=== PATIENT | female | born 1965 | race American Indian/Alaskan Native ===

== ENCOUNTER 2018-02-25 22:24 | Emergency (ER) | payer SELFPAY ==
[2018-02-25 23:07] LABS: Basophils % (Auto) 0.4 % (0.0-1.8); Eosinophils # (Auto) 0.1 K/mm3 (0.0-0.4); Eosinophils % (Auto) 0.7 % (0.0-4.3); Hematocrit 31.5 % (30.3-42.9); Hemoglobin 10.6 gm/dl (10.1-14.3); Lymphocytes # (Auto) 1.4 K/mm3 (1.2-5.4); Mean Corpuscular HGB Conc 34 % (30-34); Mean Corpuscular Hemoglobin 29 pg (28-32); Mean Corpuscular Volume 87 fl (79-97); Monocytes # (Auto) 0.9 K/mm3 (0.0-0.8); Monocytes % (Auto) 8.4 % (0.0-7.3); Platelet Count 171 K/mm3 (140-440); Red Blood Count 3.62 M/mm3 (3.65-5.03); Red Cell Distribution Width 13.8 % (13.2-15.2)
[2018-02-25 23:26] LABS: Alanine Aminotransferase 11 units/L (7-56); Albumin 3.6 g/dL (3.9-5); BUN/Creatinine Ratio 38; Blood Urea Nitrogen 19 mg/dL (7-17); Calcium 7.8 mg/dL (8.4-10.2); Hemolysis Index 4
[2018-02-25] MEDS ORDERED: NACL 0.9% 1000 ML 1,000 ML IV ONE (23:51)
[2018-02-25] MEDS ORDERED: ZOFRAN IV ONE (23:52)
[2018-02-25] MEDS ORDERED: STADOL IV PRN (23:52)
--- NOTE | 2018-02-25 23:57 | Emergency Department Report ---
ED N/V/D HPI - General Chief complaint: Nausea/Vomiting/Diarrhea Stated complaint: GENERAL SICKNESS Time Seen by Provider: 02/25/18 23:44 Source: EMS Mode of arrival: Stretcher Limitations: No Limitations - History of Present Illness Initial comments: 52-year-old woman with rapid onset of frequent bouts of nausea vomiting and diarrhea approximately 8 hours prior to arrival, and approximately 4-5 hours after eating a suspect sandwich earlier this morning, which she reported did not smell quite right. She's had about 5-6 episodes of emesis, and this is typically instigated by any attempts at oral intake, whether fluid or solid foods, she's had approximately 6-8 copious watery diarrheal stools, but without blood or melena. She is concerned she has food poisoning, but her history recently is significant for diagnosis with kidney stone the previous day during an emergency department visit at [facility], where she was treated, and discharged home, with daily dose of tamsulosin. Discomfort from kidney stone is quite different from current symptoms, having been primarily symptomatic from discomfort in the back, without any diarrhea, and much less nausea. She's not had a fever chills or diaphoresis, has had no other direct urinary symptoms into time. Past medical history significant also for arthritis, as well as prior C-sections. Patient was treated with intravenous fluids prior to my examination, but has not had any medication, still reports significant nausea, inability to keep any fluids down, discomfort is [id number]-hn-[id number], rated 6-8 out of 10, it is crampy and aching, and localized predominantly to the lower abdomen generally, without any radiation. Discomfort is worse with need to have a bowel movement, typically loose and watery, diarrheal, without blood, and intermittently cramps spontaneously in a waxing and waning fashion. - Related Data Previous Rx's Medication Instructions Recorded Last Taken Type Dicyclomine [Bentyl] 10 mg PO QID PRN #12 capsule 02/26/18 Unknown Rx HYDROcodone/ACETAMINOPHEN [[place] 1 each PO Q4-6H PRN #12 tablet 02/26/18 Unknown Rx 5-325 Tablet] Loperamide [Imodium A-D] 2 mg PO Q2HR PRN #12 udc 02/26/18 Unknown Rx Ondansetron [Zofran ODT TAB] 8 mg PO Q8HR PRN #10 tab.rapdis 02/26/18 Unknown Rx Allergies Allergy/AdvReac Type Severity Reaction Status Date / Time No Known Allergies Allergy Unverified 02/25/18 22:33 ED Review of Systems ROS: Stated complaint: GENERAL SICKNESS Other details as noted in HPI Comment: All other systems reviewed and negative Constitutional: denies: chills, fever ENT: denies: throat pain Respiratory: denies: cough, shortness of breath Cardiovascular: denies: chest pain, syncope Endocrine: no symptoms reported Gastrointestinal: abdominal pain, nausea, vomiting, diarrhea Genitourinary: other. denies: urgency, dysuria, hematuria Musculoskeletal: back pain, arthralgia (from recently diagnosed kidney stones() Skin: denies: rash, lesions Neurological: denies: headache, weakness, paresthesias Psychiatric: denies: anxiety, depression Hematological/Lymphatic: denies: easy bleeding, easy bruising ED Past Medical Hx - Past Medical History Previous Medical History?: Yes Hx Arthritis: Yes Hx Kidney Stones: Yes - Surgical History Past Surgical History?: Yes Additional Surgical History: - Social History Smoking Status: Current Every Day Smoker Substance Use Type: Prescribed - Medications Home Medications: Home Medications Medication Instructions Recorded Confirmed Last Taken Type Dicyclomine [Bentyl] 10 mg PO QID PRN #12 capsule 02/26/18 Unknown Rx HYDROcodone/ACETAMINOPHEN [[place] 1 each PO Q4-6H PRN #12 tablet 02/26/18 Unknown Rx 5-325 Tablet] Loperamide [Imodium A-D] 2 mg PO Q2HR PRN #12 udc 02/26/18 Unknown Rx Ondansetron [Zofran ODT TAB] 8 mg PO Q8HR PRN #10 tab.rapdis 02/26/18 Unknown Rx ED Physical Exam - General Limitations: No Limitations General appearance: in distress (nacl-iw-axmbvzqh discomfort, resting quietly on stretcher, apparently sleeping at time of examination) - Head Head exam: Present: atraumatic, normocephalic - Eye Eye exam: Present: PERRL, EOMI - ENT ENT exam: Present: normal exam - Neck Neck exam: Present: normal inspection, full ROM. Absent: tenderness - Respiratory Respiratory exam: Present: normal lung sounds bilaterally. Absent: respiratory distress, chest wall tenderness - Cardiovascular Cardiovascular Exam: Present: regular rate, normal heart sounds - GI/Abdominal GI/Abdominal exam: Present: soft, tenderness (bahj-zy-ybqeeygl, lower abdomen, nonlocalized), hyperactive bowel sounds (mildly brisk, no borborygmi, no obstructive nature). Absent: guarding, rebound - Rectal Rectal exam: Present: deferred - Extremities Exam Extremities exam: Present: normal inspection - Back Exam Back exam: Present: tenderness (mild bilateral lumbosacral tenderness and soft tissue, no direct bony tenderness) - Neurological Exam Neurological exam: Present: alert, oriented X3 - Psychiatric Psychiatric exam: Present: normal affect, normal mood - Skin Skin exam: Present: warm, dry, intact, normal color. Absent: rash ED Course Vital Signs 02/25/18 02/25/18 02/25/18 22:27 22:31 22:40 Temperature 36.7 C Pulse Rate 92 H Respiratory 18 Rate Blood Pressure 102/72 112/64 O2 Sat by Pulse 98 100 99 Oximetry 02/25/18 02/25/18 02/25/18 22:50 23:00 23:10 Temperature Pulse Rate Respiratory Rate Blood Pressure 100/62 105/66 105/66 O2 Sat by Pulse 99 98 Oximetry 02/25/18 02/25/18 02/25/18 23:20 23:30 23:40 Temperature Pulse Rate Respiratory Rate Blood Pressure 100/62 99/62 99/62 O2 Sat by Pulse 98 100 99 Oximetry 02/25/18 02/26/18 23:50 00:00 Temperature Pulse Rate Respiratory Rate Blood Pressure 102/65 110/71 O2 Sat by Pulse 98 98 Oximetry - Reevaluation(s) Reevaluation #1: 02/26/18 00:21 Stable, improved after treated medically, although patient urinated on her own, reporting that she had to go, could not wait, refused to wait to collect urine specimen. ED Medical Decision Making - Lab Data Result diagrams: 02/25/18 22:53 02/25/18 22:53 - Medical Decision Making Findings of typical acute gastroenteritis, likely spoiled food as proximate cause, with generally benign abdomen, with dehydration, physically and clinically stable, will be treated symptomatically with antiemetics, antispasmodics, and analgesics. Clear fluid recommended, rest, and work release provided. Recheck by physician in 2-3 days Critical Care Time: No Critical care attestation.: If time is entered above; I have spent that time in minutes in the direct care of this critically ill patient, excluding procedure time. ED Disposition Clinical Impression: Acute gastroenteritis, Dehydration, moderate Disposition: DC-01 TO HOME OR SELFCARE Is pt being admited?: No Does the pt Need Aspirin: No Condition: Stable Instructions: Dehydration (ED), Food Poisoning (ED) Prescriptions: Dicyclomine [Bentyl] 10 mg PO QID PRN #12 capsule PRN Reason: cramping HYDROcodone/ACETAMINOPHEN [[place] 5-325 Tablet] 1 each PO Q4-6H PRN #12 tablet PRN Reason: Pain, Moderate (4-6) Loperamide [Imodium A-D] 2 mg PO Q2HR PRN #12 udc PRN Reason: Diarrhea Ondansetron [Zofran ODT TAB] 8 mg PO Q8HR PRN #10 tab.rapdis PRN Reason: Nausea Referrals: PRIMARY CARE, [Primary Care Provider] - 3-5 Days Forms: Work/School Release Form(ED) Time of Disposition: 00:27
[2018-02-26] MEDS ORDERED: MORPHINE IV ONE ×2 (00:17→00:18)
[2018-02-26] MEDS ORDERED: BENADRYL IV ONE (00:33)
[2018-02-26] MEDS ORDERED: IMODIUM PO ONE (00:34)
[2018-02-26 01:32] VITALS: BP 128/79
== END 2018-02-26 01:32 | disposition home or self-care (01) ==
LOC: ED 22:24
DX: K52.9 Noninfective gastroenteritis and colitis, unspecified (principal); E86.0 Dehydration; M19.90 Unspecified osteoarthritis, unspecified site; F17.200 Nicotine dependence, unspecified, uncomplicated; Z87.442 Personal history of urinary calculi
CPT/HCPCS: 36415; 80053; 85025; 96361; 96374; 96375; 99284; J1200; J2270; J2405; J7030

== ENCOUNTER 2019-04-21 12:55 | Emergency (ER) | payer SELFPAY ==
[2019-04-21 13:16] VITALS: BP 114/75
[2019-04-21 13:29] LABS: Basophils % (Auto) 0.7 % (0.0-1.8); Eosinophils # (Auto) 0.1 K/mm3 (0.0-0.4); Eosinophils % (Auto) 1.2 % (0.0-4.3); Hematocrit 36.1 % (30.3-42.9); Hemoglobin 12.1 gm/dl (10.1-14.3); Lymphocytes # (Auto) 2.3 K/mm3 (1.2-5.4); Lymphocytes % (Auto) 39.2 % (13.4-35.0); Mean Corpuscular HGB Conc 33 % (30-34); Mean Corpuscular Volume 86 fl (79-97); Monocytes # (Auto) 0.5 K/mm3 (0.0-0.8); Monocytes % (Auto) 8.2 % (0.0-7.3); Platelet Count 226 K/mm3 (140-440); Red Cell Distribution Width 15.1 % (13.2-15.2)
--- NOTE | 2019-04-21 13:39 | XRay Report ---
CHEST 2 VIEWS INDICATION / CLINICAL INFORMATION: Chest Pain. COMPARISON: None available. FINDINGS: SUPPORT DEVICES: None. HEART / MEDIASTINUM: No significant abnormality. LUNGS / PLEURA: No significant pulmonary or pleural abnormality. No pneumothorax. Small calcified gra nuloma is present in the left midlung. ADDITIONAL FINDINGS: No significant additional findings. IMPRESSION: 1. No acute findings. Signer Name: Akanksha France MD Signed: 04/21/2019 1:34 PM Workstation Name: [id number]
[2019-04-21 13:42] LABS: INR 1.01 (0.87-1.13); Partial Thromboplastin Time 27.4 Sec. (24.2-36.6)
[2019-04-21 13:54] LABS: Alanine Aminotransferase 27 units/L (7-56); Albumin 4.4 g/dL (3.9-5); BUN/Creatinine Ratio 12; Blood Urea Nitrogen 7 mg/dL (7-17); Calcium 9.4 mg/dL (8.4-10.2); Hemolysis Index 7
--- NOTE | 2019-04-21 14:22 | Emergency Department Report ---
ED Chest Pain HPI - General Chief Complaint: Chest Pain Stated Complaint: CHEST PAIN Time Seen by Provider: 04/21/19 13:13 Source: patient Mode of arrival: Ambulatory Limitations: No Limitations - History of Present Illness MD Complaint: chest pain -: Gradual, days(s) (1) Onset: during rest Pain Location: substernal Pain Radiation: none, LUE Severity scale (0 -10): 1 Quality: aching Consistency: intermittent Improves With: nothing Worsens With: nothing re: denies: nausea, vomting, diaphoresis, dyspnea, sense of impending doom Other Symptoms: other (Denies fam hx sudden cardiac ). denies: cough, fever, syncope, rash, acid taste in mouth, leg swelling, palpitations, burping - Related Data Previous Rx's Medication Instructions Recorded Last Taken Type Dicyclomine [Bentyl] 10 mg PO QID PRN #12 capsule 02/26/18 Unknown Rx HYDROcodone/ACETAMINOPHEN [[place] 1 each PO Q4-6H PRN #12 tablet 02/26/18 Unknown Rx 5-325 Tablet] Loperamide [Imodium A-D] 2 mg PO Q2HR PRN #12 udc 02/26/18 Unknown Rx Ondansetron [Zofran ODT TAB] 8 mg PO Q8HR PRN #10 tab.rapdis 02/26/18 Unknown Rx Allergies Allergy/AdvReac Type Severity Reaction Status Date / Time No Known Allergies Allergy Unverified 02/25/18 22:33 Heart Score - HEART Score History: Slightly suspicious EKG: Normal Age: 45-65 Risk factors: No known risk factors Troponin: < normal limit HEART Score: 1 ED Review of Systems ROS: Stated complaint: CHEST PAIN Other details as noted in HPI Other: GENERAL: No weight change, fatigue, fever, chills, or night sweats SKIN: No changes in skin or hair, no itching, no rashes, no jaundice HEAD: No trauma, headache, or visual changes EYES: No blurriness, tearing, itching, acute visual loss, conjunctival discoloration, or scleral icterus EARS: No hearing loss, tinnitus, vertigo, or earache NOSE: No rhinorrhea, stuffiness, sneezing, itching, or epistaxis MOUTH: No bleeding gums, hoarseness, sore throat, or swelling CARDIAC: Chest pain. No new murmur, palpitations, dyspnea on exertion, orthopnea, PND, or edema RESPIRATORY: No shortness of breath, wheeze, cough, sputum production, hemoptysis, pneumonia, asthma, bronchitis, or emphysema GI: No change in appetite, nausea, vomiting, dysphagia, diarrhea, constipation, hematemesis, melena, hematochezia, or abdominal pain URINARY: No frequency, urgency, polyuria, dysuria, hematuria, or incontinence MUSCULOSKELETAL: No muscle weakness, joint stiffness, decrease in range of motion, redness, swelling NEUROLOGIC: No headache, loss of sensation, numbness, tingling, tremors, weakness, paralysis, seizures HEMATOLOGIC: No anemia, easy bruising, bleeding, petechiae, or purpura ENDOCRINE: No hot or cold intolerance, sweating, polyuria, polydipsia or, polyphagia no thyroid problems PSYCHIATRIC: No change in mood, no anxiety, no depression ED Past Medical Hx - Past Medical History Previous Medical History?: Yes Hx Arthritis: Yes Hx Kidney Stones: Yes - Surgical History Past Surgical History?: Yes Additional Surgical History: - Social History Smoking Status: Current Every Day Smoker Substance Use Type: None - Medications Home Medications: Home Medications Medication Instructions Recorded Confirmed Last Taken Type Dicyclomine [Bentyl] 10 mg PO QID PRN #12 capsule 02/26/18 Unknown Rx HYDROcodone/ACETAMINOPHEN [[place] 1 each PO Q4-6H PRN #12 tablet 02/26/18 Unknown Rx 5-325 Tablet] Loperamide [Imodium A-D] 2 mg PO Q2HR PRN #12 udc 02/26/18 Unknown Rx Ondansetron [Zofran ODT TAB] 8 mg PO Q8HR PRN #10 tab.rapdis 02/26/18 Unknown Rx ED Physical Exam - General Limitations: No Limitations - Other Other exam information: GENERAL: Patient in no acute distress HEAD: Normocephalic, atraumatic EYES: PERRLA, EOM intact, no scleral icterus, no conjunctival hemorrhage, visual kumari and acuity wnl NOSE: No tenderness, discharge, sinus tenderness MOUTH: No erythema, bleeding, exudate HEART: Regular rate and rhythm, no murmur, S1-S2 are auscultated, pulses are symmetric LUNGS: Bilateral breath sounds, No tachypnea, No retractions, No wheezing, rales, rhonchi ABDOMEN: Normal bowel sounds, abdomen soft, no tenderness, no rebound, no gu arding, no distention, no masses, no CVA tenderness MUSCULOSKELETAL: Normal joint range of motion, no redness, no swelling, no tenderness NEUROLOGIC: GCS 15, Alert and Oriented x3, Cranial nerves intact, normal sensation, normal strength, no cerebellar deficit, NIHSS 0 PSYCHIATRIC: Patient rude and hostile during interview saying she is irritated to keep asking questions with ER staff and it should be able to be read in the computer the first time. No homicidal or suicidal ideation, no anxiety, no depression, no hallucinations SKIN: Skin is warm and dry, no wounds, no rashes ED Course Vital Signs 04/21/19 13:13 Temperature 98.3 F Pulse Rate 80 Respiratory 20 Rate Blood Pressure 114/75 O2 Sat by Pulse 100 Oximetry ED Medical Decision Making - Lab Data Result diagrams: 04/21/19 13:21 04/21/19 13:21 Laboratory Results - last 24 hr 04/21/19 04/21/19 04/21/19 13:21 13:21 13:21 WBC 5.9 RBC 4.20 Hgb 12.1 Hct 36.1 MCV 86 MCH 29 MCHC 33 RDW 15.1 Plt Count 226 Lymph % (Auto) 39.2 H [place] % (Auto) 8.2 H Eos % (Auto) 1.2 Baso % (Auto) 0.7 Lymph # 2.3 [place] # 0.5 Eos # 0.1 Baso # 0.0 Seg Neutrophils % 50.7 Seg Neutrophils # 3.0 PT 13.0 INR 1.01 APTT 27.4 Sodium 143 Potassium 4.0 Chloride 103.2 Carbon Dioxide 29 Anion Gap 15 BUN 7 Creatinine 0.6 L Estimated GFR > 60 BUN/Creatinine Ratio 12 Glucose 71 Calcium 9.4 Total Bilirubin 0.30 AST 19 ALT 27 Alkaline Phosphatase 70 Troponin T < 0.010 Total Protein 7.1 Albumin 4.4 Albumin/Globulin Ratio 1.6 - EKG Data When compared to previous EKG there are: no significant change - Radiology Data Radiology results: report reviewed - Medical Decision Making Patient comfortable. Updated with results. Plan continue lab evaluation. Patient refusing further testing in the ER with staff. Risks/benefits/alternatives discussed including . Patient expresses un derstanding. Plan discharge against medical advice. Return if any worsening. Critical care attestation.: If time is entered above; I have spent that time in minutes in the direct care of this critically ill patient, excluding procedure time. ED Disposition Clinical Impression: Left against medical advice, Drug-seeking behavior Chest pain Qualifiers: Chest pain type: unspecified Qualified Code(s): R07.9 - Chest pain, unspecified Disposition: LEFT AGAINST MED ADVICE Is pt being admited?: No Condition: Stable Instructions: Chest Pain (ED) Referrals: PRIMARY CAREMD [Primary Care Provider] - 2-3 Days TYESHA NANCE MD [Staff Physician] - 2-3 Days [facility] [Outside] - 2-3 Days Time of Disposition: 14:25
== END 2019-04-21 14:49 | disposition left against medical advice (07) ==
LOC: ED 12:55
DX: R07.9 Chest pain, unspecified (principal); Z76.5 Malingerer [conscious simulation]; M19.90 Unspecified osteoarthritis, unspecified site; F17.200 Nicotine dependence, unspecified, uncomplicated
CPT/HCPCS: 36415; 71046; 80053; 84484; 85025; 85610; 85730; 93005; 93010

== ENCOUNTER 2019-05-26 03:28 | Emergency (ER) | payer SELFPAY ==
[2019-05-26 03:33] VITALS: BP 105/75
--- NOTE | 2019-05-26 05:09 | Emergency Department Report ---
Chief Complaint: Skin Rash Stated Complaint: BODY RASH Time Seen by Provider: 05/26/19 04:43 - HPI History of Present Illness: 53-year-old -[place] female comes in with generalized body rash 3 weeks has been off and on. Patient reports she's taken Benadryl to help with the itching but REMAINED. Patient denies any new soaps lotions or change of detergents. Patient denies any pets in the home. Patient denies any fever chills. Patient does report that boyfriend has the same bumps. Patient reports that she is followed by [facility]. - ROS Review of Systems: No fever no chills no new detergents lotions or soaps. - Exam Vital Signs: Vital Signs 05/26/19 03:31 Temperature 97.7 F Pulse Rate 74 Respiratory 18 Rate Blood Pressure 105/75 O2 Sat by Pulse 100 Oximetry Physical Exam: A similar and oriented 3. Patient has multiple lesions appears to be insect bites. No cellulitic areas. MSE screening note: Focused history and physical exam performed. Due to findings the following was ordered: Patient be discharged to follow-up with her primary care provider or Dermatology. ED Disposition for MSE Clinical Impression: Bites Disposition: Z-07 MED SCREENING EXAM-LEFT Is pt being admited?: No Does the pt Need Aspirin: No Condition: Stable Referrals: [facility] [Outside] - 3-5 Days ELOY WESTFALL MD [Staff Physician] - 3-5 Days
== END 2019-05-26 05:15 | disposition left against medical advice (07) ==
LOC: ED 03:28
DX: T14.8XXA Other injury of unspecified body region, initial encounter (principal); R21 Rash and other nonspecific skin eruption; W57.XXXA Bitten or stung by nonvenomous insect and other nonvenomous arthropods, initial encounter; Y93.89 Activity, other specified; Y92.89 Other specified places as the place of occurrence of the external cause; Y99.8 Other external cause status
CPT/HCPCS: 99282

== ENCOUNTER 2019-06-06 15:47 | Emergency (ER) | payer SELFPAY ==
--- NOTE | 2019-06-06 18:15 | XRay Report ---
CHEST 2 VIEWS INDICATION / CLINICAL INFORMATION: cough and fever. COMPARISON: 04/21/2019 FINDINGS: SUPPORT DEVICES: None. HEART / MEDIASTINUM: No significant abnormality. LUNGS / PLEURA: No significant pulmonary or pleural abnormality. .No pneumothorax. ADDITIONAL FINDINGS: Calcified granulomas noted on the left. IMPRESSION: 1. No acute findings. Signer Name: Heron Reyes MD Signed: 06/06/2019 6:10 PM Workstation Name: [id number]
[2019-06-06] MEDS ORDERED: KETOROLAC 30 MG/1 ML INJ IM ONE (19:49)
[2019-06-06] MEDS ORDERED: dexAMETHasone 20 MG/5 ML VIAL IM ONE (19:49)
[2019-06-06] MEDS ORDERED: AMOXICILLIN/K CLAV 875/125MG TAB PO ONE (19:50)
[2019-06-06] MEDS ORDERED: diphenhydrAMINE 25 MG CAP PO ONE (19:50)
--- NOTE | 2019-06-06 20:21 | Emergency Department Report ---
- General Chief Complaint: Upper Respiratory Infection Stated Complaint: CHILLS/DIZZY/VOMITING/HEADACHE Source: patient Mode of arrival: Ambulatory Limitations: No Limitations - History of Present Illness Initial Comments: Patient is a 53-year-old female with no past medical history who presents to the ED with complaint of acute onset persistent nasal and sinus congestion, sore throat, dry cough, diffuse body aches and pains, fever and chills and severe frontal headache for the last 3 days. Patient states that she has been taking [id number] remedies with no relief. The patient denies dizziness, nausea, vomiting, diarrhea, abdominal pain, chest pain, shortness of breath, change in vision, syncope, neck pain, dysuria, urinary frequency and urgency or vaginal bleeding. MD Complaint: fever, cough, sore throat, rhinorrhea, nasal congestion, sinus pain -: Sudden, days(s) (3) Severity: severe Severity scale (0 -10): 7 Quality: sharp, aching Consistency: constant Improves With: nothing Worsens With: nothing Associated Symptoms: denies other symptoms, fever, chills, myalgias, headache, rhinorrhea, nasal congestion, sore throat, cough. denies: chest pain, shortness of breath, nausea, vomiting, diarrhea, dysuria, rash, right sweats, epistaxis, ear pain, other Treatments Prior to Arrival: none - Related Data Previous Rx's Medication Instructions Recorded Last Taken Type Dicyclomine [Bentyl] 10 mg PO QID PRN #12 capsule 02/26/18 Unknown Rx HYDROcodone/ACETAMINOPHEN [[place] 1 each PO Q4-6H PRN #12 tablet 02/26/18 Unknown Rx 5-325 Tablet] Loperamide [Imodium A-D] 2 mg PO Q2HR PRN #12 udc 02/26/18 Unknown Rx Ondansetron [Zofran ODT TAB] 8 mg PO Q8HR PRN #10 tab.rapdis 02/26/18 Unknown Rx Amoxicillin [Trimox CAP] 500 mg PO Q8H #30 capsule 06/06/19 Unknown Rx Benzonatate [Tessalon Perles] 100 mg PO Q8HR #24 capsule 06/06/19 Unknown Rx Cetirizine HCl [Zyrtec 10mg tab] 10 mg PO DAILY #30 tablet 06/06/19 Unknown Rx Ibuprofen [Motrin] 400 mg PO Q8H PRN #24 06/06/19 Unknown Rx methylPREDNISolone [Medrol 4MG 4 mg PO DAILY #21 tab.ds.pk 06/06/19 Unknown Rx DOSEPAK (21 tabs)] Allergies Allergy/AdvReac Type Severity Reaction Status Date / Time No Known Allergies Allergy Unverified 02/25/18 22:33 ED Review of Systems ROS: Stated complaint: CHILLS/DIZZY/VOMITING/HEADACHE Other details as noted in HPI Comment: All other systems reviewed and negative () Constitutional: chills, fever, malaise Eyes: denies: eye pain, eye discharge, vision change ENT: throat pain, congestion. denies: ear pain Respiratory: cough. denies: shortness of breath, SOB with exertion, SOB at rest, stridor, wheezing Cardiovascular: denies: chest pain, palpitations, dyspnea on exertion, syncope, paroxysmal nocturnal dyspnea Endocrine: no symptoms reported Gastrointestinal: denies: abdominal pain, nausea, diarrhea Genitourinary: denies: urgency, dysuria, discharge Musculoskeletal: back pain, arthralgia, myalgia. denies: joint swelling Skin: denies: rash, lesions Neurological: headache. denies: weakness, paresthesias Psychiatric: denies: anxiety, depression Hematological/Lymphatic: denies: easy bleeding, easy bruising ED Past Medical Hx - Past Medical History Hx Arthritis: Yes Hx Kidney Stones: Yes - Surgical History Additional Surgical History: - Social History Smoking Status: Current Every Day Smoker Substance Use Type: None - Medications Home Medications: Home Medications Medication Instructions Recorded Confirmed Last Taken Type Dicyclomine [Bentyl] 10 mg PO QID PRN #12 capsule 02/26/18 Unknown Rx HYDROcodone/ACETAMINOPHEN [[place] 1 each PO Q4-6H PRN #12 tablet 02/26/18 Unknown Rx 5-325 Tablet] Loperamide [Imodium A-D] 2 mg PO Q2HR PRN #12 udc 02/26/18 Unknown Rx Ondansetron [Zofran ODT TAB] 8 mg PO Q8HR PRN #10 tab.rapdis 02/26/18 Unknown Rx Amoxicillin [Trimox CAP] 500 mg PO Q8H #30 capsule 06/06/19 Unknown Rx Benzonatate [Tessalon Perles] 100 mg PO Q8HR #24 capsule 06/06/19 Unknown Rx Cetirizine HCl [Zyrtec 10mg tab] 10 mg PO DAILY #30 tablet 06/06/19 Unknown Rx Ibuprofen [Motrin] 400 mg PO Q8H PRN #24 06/06/19 Unknown Rx methylPREDNISolone [Medrol 4MG 4 mg PO DAILY #21 tab.ds.pk 06/06/19 Unknown Rx DOSEPAK (21 tabs)] ED Physical Exam - General Limitations: No Limitations General appearance: alert, in no apparent distress - Head Head exam: Present: atraumatic, normocephalic, normal inspection - Eye Eye exam: Present: normal appearance, PERRL, EOMI Pupils: Present: normal accommodation - ENT ENT exam: Present: mucous membranes moist, other (severe frontal sinus pressure and tenderness; grossly congested nasal passages) - Neck Neck exam: Present: normal inspection, full ROM - Respiratory Respiratory exam: Present: normal lung sounds bilaterally. Absent: respiratory distress, wheezes, rales, stridor, chest wall tenderness, accessory muscle use, prolonged expiratory - Cardiovascular Cardiovascular Exam: Present: regular rate, normal rhythm, normal heart sounds. Absent: systolic murmur, diastolic murmur, rubs, gallop - GI/Abdominal GI/Abdominal exam: Present: soft, normal bowel sounds. Absent: tenderness, hyperactive bowel sounds - Extremities Exam Extremities exam: Present: normal inspection, full ROM, normal capillary refill - Back Exam Back exam: Present: normal inspection, full ROM. Absent: CVA tenderness (L), muscle spasm, paraspinal tenderness, vertebral tenderness - Neurological Exam Neurological exam: Present: alert, oriented X3, CN II-XII intact, normal gait, reflexes normal - Psychiatric Psychiatric exam: Present: normal affect, normal mood - Skin Skin exam: Present: warm, dry, intact, normal color. Absent: rash ED Course Vital Signs 06/06/19 06/06/19 06/06/19 16:25 20:03 20:04 Temperature 100.7 F H Pulse Rate 92 H Respiratory 18 16 16 Rate Blood Pressure 116/69 [Left] O2 Sat by Pulse 92 Oximetry - Reevaluation(s) Reevaluation #1: 06/06/19 20:28 This is a 53-year-old female who presented to the ED with diffuse body aches and pains sinus congestion, dry cough, severe frontal headache and fever for 3 days. In the ED, patient is alert and oriented 3 and is not in distress. Patient is febrile with a few 100.7F in triage but in no acute distress. Patient was treated for pain. Chest x-ray shows no acute cardio pulmonary abnormalities or pneumonitis. On reevaluation, patient's symptoms have improved significantly and patient was discharged home on medications and advised to follow-up with her primary care physician in 5-7 days for reevaluation or return to the ED immediately if symptoms get worse. ED Medical Decision Making - Radiology Data Radiology results: report reviewed, image reviewed Chest x-ray shows no acute cardiopulmonary abnormalities or pneumonitis - Medical Decision Making This is a 53-year-old female who presented to the ED with diffuse body aches and pains sinus congestion, dry cough, severe frontal headache and fever for 3 days. In the ED, patient is alert and oriented 3 and is not in distress. Patient is febrile with a few 100.7F in triage but in no acute distress. Patient was treated for pain. Chest x-ray shows no acute cardio pulmonary abnormalities or pneumonitis. On reevaluation, patient's symptoms have improved significantly and patient was discharged home on medications and advised to follow-up with her primary care physician in 5-7 days for reevaluation or return to the ED immediately if symptoms get worse. - Differential Diagnosis Flu like symptoms; sinusitis, bronchitis; pneumonia; strep pharyngitis Critical care attestation.: If time is entered above; I have spent that time in minutes in the direct care of this critically ill patient, excluding procedure time. ED Disposition Clinical Impression: Acute upper respiratory infection, Sinus headache, Fever in adult Acute frontal sinusitis Qualifiers: Recurrence: non-recurrent Qualified Code(s): J01.10 - Acute frontal sinusitis, unspecified Acute bronchitis Qualifiers: Bronchitis organism: unspecified organism Qualified Code(s): J20.9 - Acute bronchitis, unspecified Disposition: DC-01 TO HOME OR SELFCARE Is pt being admited?: No Does the pt Need Aspirin: No Condition: Stable Instructions: Acute Bronchitis (ED), Acute Bacterial Rhinosinusitis (ED), Acute Headache (ED), Fever in Adults (ED) Additional Instructions: Take medication with food, drink plenty of fluids and follow up with your primary care physician in 5-7 days for reevaluation. Return to the ED immediately if symptoms get worse. Prescriptions: methylPREDNISolone [Medrol 4MG DOSEPAK (21 tabs)] 4 mg PO DAILY #21 tab.ds.pk Ibuprofen [Motrin] 400 mg PO Q8H PRN #24 PRN Reason: Pain , Severe (7-10) Benzonatate [Tessalon Perles] 100 mg PO Q8HR #24 capsule Amoxicillin [Trimox CAP] 500 mg PO Q8H #30 capsule Cetirizine HCl [Zyrtec 10mg tab] 10 mg PO DAILY #30 tablet Referrals: [facility] [Outside] - 3-5 Days Time of Disposition: 20:18 Print Language: SENEGALESE
[2019-06-06 20:39] VITALS: BP 110/78
== END 2019-06-06 20:39 | disposition home or self-care (01) ==
LOC: ED 15:47
DX: J01.10 Acute frontal sinusitis, unspecified (principal); J20.9 Acute bronchitis, unspecified; J06.9 Acute upper respiratory infection, unspecified; M19.90 Unspecified osteoarthritis, unspecified site; F17.200 Nicotine dependence, unspecified, uncomplicated; Z87.442 Personal history of urinary calculi; Z79.899 Other long term (current) drug therapy
CPT/HCPCS: 71046; 96372; 99283; J1100; J1885